=== PATIENT | female | born 1960 | race Caucasian/White ===

== ENCOUNTER 2017-01-31 07:00 | Inpatient (IN) | payer OTHER ==
--- NOTE | 2017-01-26 15:41 | PREOPHP ---
DATE OF ADMISSION: 01/31/2017 CONSULTATION REQUESTED BY: Dr. Bob Jones. The patient to have surgery with Dr. Bob santos n 01/31/2017. REASON FOR CONSULTATION: Consultation requested by Dr. Bob Jones for medical evaluation and danita arance of a 57-year-old woman about to undergo surgery on her cervical spine for C4-C5 and C5-C6 dis k disorders. Thank you, Dr. Jones for allowing us to participate in the care of this patient. HISTORY OF PRESENT ILLNESS: Eveline Nuñez a 57-year-old woman has issues with her neck, currently being admitted for correction of the above. In terms of her past surgical history, the patient has had a x1 and surgery for wisdom teeth, otherwise has had no significant surgeries or medic al hospitalizations. Did fracture the left clavicle when she was younger. MEDICATIONS: She currently takes the following medications: 1. Lisinopril 10 mg a day. 2. Celexa 10 mg a day. 3. Vitamin D. ALLERGIES: SHE IS NOT ALLERGIC TO ANY MEDICATIONS. SOCIAL HISTORY: The patient is , has 1 daughter, age 18 in good health. She does not smoke , drinks alcohol socially, does drink coffee. Usually has no difficulty sleeping at night and is em ployed. FAMILY HISTORY: Father at age 62 of COPD, was a smoker, also had heart issues. Mother at age 84 of heart, did have colon cancer, but did not from that. Four siblings are in good healt h. One has cirrhosis of the liver and 1 is diabetic. Family history of diabetes, heart, cancer and hypertension. No strokes or thyroid issues in her family. REVIEW OF SYSTEMS: HEENT: Does get periodic migraine headaches. CARDIORESPIRATORY: Denies any chest pain or shortness of breath. GASTROINTESTINAL: No melena or hematemesis. GENITOURINARY: No urgency, frequency. GYNECOLOGIC: Post-menopause for 3 years. Up to date with her psychiatric lpn. MUSCULOSKELETAL: Positive for neck, back and wrist pain. NEUROPSYCHIATRIC: Unremarkable. GENERAL HEALTH: As above. PHYSICAL EXAMINATION: VITAL SIGNS: The patient's blood pressure was 118/80, pulse was 60 and regular, respirations were 1 8, temperature 98.3. Height 67 inches, weight 149 pounds. GENERAL: The patient was noted to be a well-developed, well-nourished female, alert and cooperative , in no apparent acute distress, oriented to time, place, and person. HEAD, EARS, EYES, NOSE AND THROAT: Head was atraumatic. Eyes: Pupils were equal, reactive to ligh t and accommodation. Fundi were benign. Tympanic membranes were unremarkable. Nose was negative. Mouth was unremarkable. Fair oral hygiene was present. NECK: Supple without any rigidity. Trachea was midline. Thyroid was unremarkable. Neck veins wer e flat. Carotid pulses were equal. No bruits were heard. BACK: Unremarkable. CHEST: Symmetrical. BREASTS AND AXILLARY: Did not reveal any masses. LUNGS: Clear to percussion and auscultation. HEART: PMI is fifth intercostal space at the midclavicular line. Regular sinus rhythm was noted. No significant murmurs, rubs, or gallops being elicited. ABDOMEN: Soft, good bowel sounds were noted. No significant organomegaly, masses, or tenderness. Scar from prior surgery was noted. GENITALIA: Normal female external genitalia. PELVIC/RECTAL: Per psychiatric lpn. EXTREMITIES: Did not reveal any clubbing, edema or cyanosis. Peripheral pulses were physiologic. SKIN: Moist and warm without any eruptions. No gross lymphadenopathy was noted. NEUROLOGIC: Grossly intact. IMPRESSION: 1. Cervical disk disease C4-C5, C5-C6. 2. Hypertension. 3. Stable health. DISCUSSION: Review of laboratory and other data revealed the following: The patient's chemistries revealed a random glucose of 127, normal electrolytes, BUN and creatinine and liver function tests, CBC, sed rate, UA, PT and PTT were normal. The patient's EKG was borderline, but revealed some nons pecific changes, but was basically normal. Chest x-ray did reveal evidence of prior fractured left clavicle. No acute infiltrates and no acute cardiopulmonary changes being noted. DISCUSSION: Dr. Jones, I see no contraindication in this patient undergoing current proposed eboni marcelo under desired form of anesthesia and will be more than happy to follow her with you during her stay at [facility]. Thank you again, Dr. Jones, for allowing us to participate in care of this patient. Dictated By: LEO GATICA/CHEPE Conf#: [id number] DID#: [id number]
[2017-01-31] VITALS (28 sets, daily range): BP systolic 103–155; BP diastolic 47–79; PULSE 53–98; RESP 8–25; Ht 170.2 cm; Wt 66.0 kg
[~2017-01-31] VITALS: Ht 170.2 cm; Wt 66.0 kg
[~2017-01-31 07:00] MED LIST: LIDOCAINE 2% (SDV) 5 ML INJ ONE; PROPOFOL 200 MG INJ ONE
[2017-01-31] MEDS ORDERED: CITA10TA72 PO (10:16)
[2017-01-31] MEDS ORDERED: LISI10TA2 PO (10:17)
[2017-01-31] MEDS ORDERED: CEFAZOLIN 2 GM/50 ML (PMX) 50 ML IVPB ONE (10:30)
[2017-01-31] MEDS ORDERED: LACTATED RINGER'S 1,000 ML IV* ONE (10:30)
--- NOTE | 2017-01-31 10:53 | HPN ---
Date/Time of Note Date/Time of Note DATE: 01/31/17 TIME: 10:53 Interval H&P Admission Note Pt. seen H&P reviewed: No system changes ROMEO CASTLE MD Jan 31, 2017 10:53
[2017-01-31] MEDS ORDERED: MIDAZOLAM 1 MG/ML 2 ML INJ ONE (11:41)
[2017-01-31] MEDS ORDERED: GELATIN SIZE 100 SPONGE ONE ×2 (11:44→11:45)
[2017-01-31] MEDS ORDERED: POLYMYXIN/BACITRACIN 1L IRRIG ONE (11:44)
[2017-01-31] MEDS ORDERED: THROMBIN 5000 UNIT VIAL ONE (11:44)
[2017-01-31] MEDS ORDERED: BUPIVACAINE 0.25% (MPF) 10 ML 10 ML VIAL ONE (11:45)
[2017-01-31] MEDS ORDERED: HYDROmorphONE 2 MG/ML SYG ONE (11:57)
[2017-01-31] MEDS ORDERED: DEXAMETHASONE 4 MG/ML 1 ML INJ ONE (13:29)
[2017-01-31] MEDS ORDERED: ONDANSETRON 4 MG INJ ONE (13:30)
[2017-01-31] MEDS ORDERED: NEOSTIGMINE 3 MG/3 ML SYRINGE ONE (15:10)
[2017-01-31] MEDS ORDERED: ROCURONIUM 50 MG INJ ONE (15:10)
[2017-01-31] MEDS ORDERED: GLYCOPYRROLATE 0.4 MG INJ ONE (15:10)
[2017-01-31] MEDS ORDERED: ACETAMINOPHEN 1000MG/100ML IV 100 ML ONE (15:11)
[2017-01-31] MEDS ORDERED: KETOROLAC 30 MG INJ ONE (15:11)
[2017-01-31] MEDS ORDERED: HYDROmorphONE (0.2 MG/ML) 10ML SYG IV ONE (15:46)
[2017-01-31] MEDS ORDERED: FENTAnyl 50 MCG/ML VIAL ONE (15:58)
[2017-01-31] MEDS ORDERED: DIPHENHYDRAMINE 50 MG INJ IV PRN (16:00)
[2017-01-31] MEDS ORDERED: hydrALAzine 20 MG INJ IV PRN (16:00)
[2017-01-31] MEDS ORDERED: FENTAnyl 50 MCG/ML VIAL IV PRN ×3 (16:00)
[2017-01-31] MEDS ORDERED: EPHEDrine SULFATE 50 MG/5 ML SYG IV PRN (16:00)
[2017-01-31] MEDS ORDERED: LABETALOL HCL 20MG INJ IV PRN (16:00)
[2017-01-31] MEDS ORDERED: HYDROmorphONE (0.2 MG/ML) 10ML SYG IV PRN ×3 (16:00)
[2017-01-31] MEDS ORDERED: ONDANSETRON 4 MG INJ IV PRN ×2 (16:00→17:30)
[2017-01-31] MEDS ORDERED: MEPERIDINE 25 MG INJ IV PRN (16:00)
[2017-01-31] MEDS ORDERED: METOCLOPRAMIDE 10 MG INJ IV PRN (16:00)
[2017-01-31] MEDS ORDERED: NALOXONE (0.4 MG/ML) INJ ONE (16:08)
--- NOTE | 2017-01-31 16:15 | OPR ---
Date/Time of Note Date/Time of Note DATE: 01/31/17 TIME: 15:58 Operative Report Preoperative Diagnosis HNP C4-5 HNP C5-6 Postoperative Diagnosis Same Operation Performed Anterior cervical microdiscectomy at C4-5 Anterior cervical microdiscectomy at C5-6 Anterior cervical interbody arthrodesis at C4-5 Anterior cervical interbody arthrodesis at C5-6 Segmental spinal fixation from C4-C6 with Alphatec plate and screws Left iliac bone graft Cosmetic wound closures 5 cm left cervical 3 cm left iliac AP and lateral cervical radiograph (2 sets) Intraoperative nerve monitoring (4-1/2 hours) Surgeon: ROMEO CASTLE MD insurance account assistant: LEBRON SAM Anesthesia: general Anesthesiologist: CLEMENT RUSHING Estimated Blood Loss: 10 - 50 ml's Specimens HNP C4-5 and C5-6 Tubes/Drains 2 medium Hemovac drains in the cervical wound and 2 medium Hemovac drains in the left iliac wound Operative\Procedure Findings At surgery, severe herniation of the C5-6 disc and a moderate herniation of the C4-5 disc were confirmed the baseline intraoperative nerve monitoring revealed a decrease in the C5 potential on the left of 20% the C5 potential on the right of 40% the C6 potential on the left at 50% and the C6 potential on the right of 20% these returned to normal at the completion of the surgery ROMEO CASTLE MD Jan 31, 2017 16:11
[2017-01-31] MEDS ORDERED: NALOXONE (0.4 MG/ML) INJ IV ONE ×2 (16:30)
--- NOTE | 2017-01-31 16:38 | OPPN ---
Date/Time of Note Date/Time of Note DATE: 01/31/17 TIME: 16:24 Anesthesia Follow up Anesthesia Follow up Last documented vital signs Vital Signs Date Time Temp Pulse Resp B/P Pulse Ox O2 Delivery O2 Flow Rate FiO2 01/31/17 15:44 98.2 01/31/17 10:50 53 16 143/68 99 Room Air Comments Called back to PACU stat for patient O2 desaturation. Upon arrival, patient being bag ventilated by Dr. Puentes, secondary to acute hypoxia. Currently vitals signs stable with mask and bag ventilation with O2 saturation 100%, BP 126/72, and pulse 95. Narcan 0.2 mg ivp given, then narcan 0.1 mg additional given, with return of spontaneous ventilation and return of consciousness by the patient. Upon further inquiring PACU nurse, patient was given I mg of dilaudid in a short amount of time resulting in hypoventilation and hypoxia, requiring assisted ventilation. Patient received intraoperative dilaudid, as well as offirmev and toradol, and believe the additional dilaudid given in a short amount of time immediately upon arrival to the PACU resulted in hypoventilation. Currently patient awake and alert, vss, and complaining of slight discomfort to her neck and bladder. Will continue to follow and monitor her dilaudid use more closely in the PACU and subsequently on the floor with her [employer] LENS TECHNICIAN. CLEMENT RUSHING Jan 31, 2017 16:36
--- NOTE | 2017-01-31 17:24 | RADRPT ---
PROCEDURE: AP and lateral views of the cervical spine. CLINICAL INDICATION: Cervical fusion. TECHNIQUE: A total of 2 AP and 4 lateral views of the cervical spine were performed. COMPARISON: No. FINDINGS: The cervical vertebra are anatomically aligned. There is disk space narrowing with ventral and dors al spondylosis at C5-6. There is mild disk space narrowing and ventral spondylosis at C4-5. The ar ticular facets and spinous processes are unremarkable. The second image demonstrates a marker at the level of the C5-6 intervertebral disk space. Subsequen tly images demonstrate placement of a compression plate which is secured with screws in the bodies o f C4-C5 and C6 which are anatomically aligned in the final cross-table lateral view. IMPRESSION: 1. Status post anterior cervical fusion from C4 to 01/25. 2. An endotracheal tube and NG tube are noted in place. RPTAT:AAJJ Physician Kirti Date Time Electronically viewed and signed by Physician Kirti on 01/31/2017 17:23 KAPIL/
[2017-01-31] MEDS ORDERED: NACL 0.9% 3 ML SYG IV SCH (17:30)
[2017-01-31] MEDS ORDERED: HYDROmorphONE 0.2 MG/ML PCA IV SCH (17:30)
[2017-01-31] MEDS ORDERED: BETHANECHOL 25 MG TAB PO PRN (17:30)
[2017-01-31] MEDS ORDERED: NALOXONE (0.4 MG/ML) INJ IV PRN (17:30)
[2017-01-31] MEDS ORDERED: DIPHENHYDRAMINE 50 MG CAP PO PRN (17:30)
[2017-01-31] MEDS ORDERED: AL HYDROX/MG HYDROX/SIMETH 30 ML CUP PO PRN (17:30)
[2017-01-31] MEDS ORDERED: HYDROCODONE/APAP (5/325) TAB PO PRN ×2 (17:30)
[2017-01-31] MEDS ORDERED: PROCHLORPERAZINE 10 MG TAB PO PRN (17:30)
[2017-01-31] MEDS ORDERED: ACETAMINOPHEN 325 MG TAB PO PRN (17:30)
[2017-01-31] MEDS ORDERED: ZOLPIDEM 5 MG TAB PO PRN (17:30)
[2017-01-31] MEDS ORDERED: DIAZEPAM 5 MG/ML SYG IM PRN (17:30)
[2017-01-31] MEDS ORDERED: TRIMETHOBENZAMIDE 100 MG/ML VIAL IM PRN (17:30)
[2017-01-31] MEDS ORDERED: DIAZEPAM 5 MG TAB PO PRN (17:30)
[2017-01-31] MEDS: CEFAZOLIN 1 GM/50 ML (PMX) 50 ML IVPB SCH ×2 (18:00→23:58)
--- NOTE | 2017-01-31 19:48 | OPR ---
DATE OF OPERATION: 01/31/2017 PREOPERATIVE DIAGNOSES: 1. Herniated disk C4-C5 centrally (moderate). 2. Herniated disk C5-C6 centrally and to the right (severe). POSTOPERATIVE DIAGNOSES: 1. Herniated disk C4-C5 centrally (moderate). 2. Herniated disk C5-C6 centrally and to the right (severe). OPERATION PERFORMED: 1. Anterior cervical microdiskectomy at C4-5. 2. Anterior cervical microdiskectomy at C5-6. 3. Anterior cervical interbody arthrodesis at C4-5. 4. Anterior cervical interbody arthrodesis C5-6. 5. Segmental spinal fixation from C4 to C6 using Alphatec plate and screws. 6. Left iliac bone graft. 7. Cosmetic wound closures (5 cm left cervical, 3 cm left iliac). 8. AP and lateral cervical radiographs (2 sets). 9. Intraoperative nerve monitoring (4-1/2 hours) SURGEON: Bob Jones MD GENERAL LEDGER ACCOUNTANT: Skyla Lemus PA-C ANESTHESIA: General endotracheal by Dr. Munroe. ESTIMATED BLOOD LOSS: 50 mL, none replaced. DRAINS: Two medium Hemovac drains employed in the cervical wound, 2 medium Hemovac drains employed in the left iliac wound. COMPLICATIONS: None. PERTINENT HISTORY AND PHYSICAL: This is a 57-year-old female who sustained an injury to her neck in the course of employment on 01/15/2015. She has had extensive care since that time, remained sympt omatic with neck pain, stiffness, and upper extremity symptomatology, which has been unrelieved by c onservative management. She has undergone a number of diagnostic studies including an MRI of the ce rvical spine, which demonstrated disk herniations at C4-5 and C5-6. Treatment options were discusse d with the patient, she elected to proceed with surgery. OPERATIVE FINDINGS AT SURGERY: Herniations at C4-5 and C5-6 were confirmed with significant cord co mpression noted at C5-6. The baseline intraoperative nerve monitoring revealed a decrease in the C5 potential on the right of 40%, C5 potential on the left of 20%, C6 potential on the right of 20%, C 6 potential on the left of 50%. These all returned to normal at the completion of surgery. OPERATIVE PROCEDURE: With the patient in supine position after satisfactory induction of general en dotracheal anesthesia by Dr. Munroe, the patient was turned to the prone kneeling position onto the [facility] frame. The patient was positioned in the supine position with a 5-pound sandbag under the le ft buttock and a 3 liter bag of IV fluid under the shoulders. The anterior cervical spine and left iliac crest were prepped and draped in usual sterile fashion. Athrombic pumps were applied to the l egs below the knees to prevent venous stasis during and after procedure. An indwelling Banda cathet er was also placed preoperatively to facilitate bladder drainage during and after the procedure. A 5 cm incision was carried out approximately 3 fingerbreadths above the left clavicle in line with the left clavicle through skin and subcutaneous tissue to the platysma fascia. Superficial retracto rs were placed and hemostasis secured with electrocautery. Throughout the procedure, copious amount s of antibacterial irrigating solution were used to periodically irrigate the wound. The platysma f ascia was divided transversely and the interval between the sternocleidomastoid and strap muscles wa s entered with blunt dissection. The trachea and esophagus were mobilized to the right and protecte d with a Cloward hand-held retractor. The prevertebral soft tissues were cleared with a peanut elev ator. The 20-gauge spinal needle was carefully bent to prevent overpenetration, was then placed int o what was felt to be the C5-6 disk space. A lateral roentgenogram was taken, which confirmed anato tano localization. The longissimus coli muscles were elevated bilaterally with a hot knife and a Shelley otto self-retaining retractor placed into the wound. The operating microscope was then moved into p lace. A 15 blade knife used to cut a rectangular window in the annulus and anterior longitudinal li gament at C5-6, and multiple degenerative disk fragments were harvested with pituitary rongeurs and sent to laboratory for pathologic study. Additional fragments were harvested using Damari curettes (0, 2-0, 3-0, and 4-0straight and angulated curettes). The Cloward interbody distractors were then placed into the disk space to facilitate disk space distraction. A 2 mm Kerrison punch was used to take down the remnants of the posterior longitudinal ligament, and multiple disk fragments were valeriano ricki from posterior to the posterior longitudinal ligament in the canal up against the dural sac and the cord. A high speed Ant katya bur was then used to abrade the cartilaginous endplates down to subchondral bone. Retractors were withdrawn. Attention was then turned to the C4-C5 level wher e the identical procedure was carried out. The spinal cord and exiting C5 nerve roots at the C4-C5 level and the spinal cord and exiting C6 nerve roots were all decompressed during this procedure. W hile an x-ray was being developed, attention was turned to the left iliac crest where a 3 cm incisio n was carried out 1 inch proximal and 1 inch lateral to the anterior superior iliac spine in line wi th the iliac crest through skin and subcutaneous tissue to the fascia after skin was infiltrated wit h 0.25% Marcaine without epinephrine for postoperative analgesia. The skin was then retracted to th e level of the iliac crest and a fascial incision made directly over the iliac crest. A subperioste al dissection was then carried out in the inner and outer table of the left ilium, and a tricortical iliac bone graft was then harvested measuring 3/4 inch in length and 1 cm deep with a reciprocating saw and a 3/4 inch curved osteotome and mallet. It was trimmed to approximately 6 mm in height and 8 mm in depth for the 2 bone plugs. The iliac wound was thoroughly irrigated with antibacterial ir rigating solution and hemostasis secured with bone wax on the donor bone edges. This was closed ove r 2 medium Hemovac drains, one below the fascia and one above the fascia using #1 Vicryl sutures on the deep fascia, 2-0 Vicryl sutures in subcu tissue, and a 4-0 Vicryl subcuticular cosmetic closing suture on the skin. Attention then returned to the cervical wound where the 2 bone plugs were impacted into the C4-5 and C5-6 disk spaces under direct vision. A 32 mm Alphatec 6-hole plate was then selected and temporal ly transfixed to the anterior aspect of the cervical spine with temporary darts. AP and lateral x-r ays were taken, which confirmed appropriate positioning of the bone plugs and the hardware. Six 14 mm cortical cancellous screws were then used to secure the plate into C4, C5, and C6. Final AP and lateral x-rays were taken, which confirmed appropriate positioning of the hardware and the bone plug s. The wound was then closed in layers over 2 medium Hemovac drains, one below the fascia and one a kiara the fascia using 0 Vicryl Stratafix sutures to reapproximate the interval between the sternocle idomastoid and strap muscles, 0 Vicryl sutures on the platysma fascia, 3-0 Vicryl sutures in subcu t issue, and a 4-0 Vicryl subcuticular cosmetic closing suture on the skin. Dermabond and sterile sarai ssings were applied to both incisions. The neck was then immobilized in an [place] collar prior to ex tubation by Dr. Munroe. She was transported to recovery room in satisfactory condition. At the concl usion of the procedure, sponge, instrument, and needle counts were all correct. NEED FOR [employer] ELECTRICAL DESIGNER: During this spinal surgical procedure, my outpatient physical therapist assistant was used to retrac t and protect the spinal nerves and dural sac. My outpatient physical therapist assistant also employed the suction catheters to evacuate blood from the surgical field to improve visualization of the neural structures. The zari tant was medically necessary to facilitate the completion of the surgery in a safe and expeditious m calista. State of [place] regulations, as well as hospital bylaws, preclude the use of non-license d health care personnel such as operating room technicians, to perform these functions. Throughout the procedure, neural monitoring was carried out by [employer] including EMG, SSEP, and MEP monitoring of the C4, C5, C6, and C7 nerve roots and spinal cord potent ials bilaterally. These were interpreted by neurologist employed by [employer]. An endotrach eal tube with laryngeal monitoring was also used. Dictated By: BOB JONES MD TM/NTS Conf#: [id number] DID#: [id number] CC: LEO ROSS MD; BOB JONES MD;*End*
--- NOTE | 2017-01-31 19:53 | CONS ---
DATE OF ADMISSION: 01/31/2017 DATE OF CONSULTATION: 01/31/2017 POSTOPERATIVE CONSULT FOLLOWUP: HISTORY OF PRESENT ILLNESS: Patient seen in recovery room postop approximately 4:50 p.m. The patien t is alert and apparently had a hypoventilation episode secondary to intravenous narcotic injection for pain control; however, is quite fine at this particular point in time. The patient's vital sign s reveal a blood pressure of 130/82, respirations are 17 patient is afebrile. O2 sat is satisfactor y. HEENT: other than a cervical collar in place and is otherwise unremarkable. LUNGS: Clear. HEART: Reveals a regular rate exam and again cervical collar noted. IMPRESSION: 1. Status post cervical disk surgery for herniated disk. 2. Hypertension. 3. Anxiety/depression. DISCUSSION: Plan is to obviously monitor this patient carefully in terms of her general status. He r preoperative medicines have been ordered and I will follow her along with you during her stay at [facility]. Thank you again, Dr. Jones, for allowing us to participate in the care of this patient. Dictated By: LEO ROSS MD SS/CHEPE Conf#: [id number] DID#: [id number]
[2017-01-31] MEDS: DEXTROSE 5%-0.45% NACL 1,000 ML IV SCH (21:35)
[2017-01-31] MEDS: RANITIDINE 150 MG TAB PO SCH (21:36)
[2017-01-31] MEDS: CEPASTAT LOZENGE MT PRN (21:36)
[2017-02-01 00:02] VITALS: BP 98/56; PULSE 58; RESP 17
[2017-02-01] MEDS: DEXTROSE 5%-0.45% NACL 1,000 ML IV SCH ×3 (03:02→23:02)
[2017-02-01 04:14] VITALS: BP 107/58; RESP 20
[2017-02-01] MEDS: CEFAZOLIN 1 GM/50 ML (PMX) 50 ML IVPB SCH ×2 (05:19→12:11)
[2017-02-01 05:23] LABS: HEMATOCRIT 34.7 % (37.0-47.0); HEMOGLOBIN 11.7 g/dl (12.0-16.0)
[2017-02-01] MEDS: CEPASTAT LOZENGE MT PRN (05:26)
[2017-02-01 05:54] LABS: CALCIUM 8.6 mg/dl (8.4-10.2); CREATININE 0.9 mg/dl (0.44-1.00); POTASSIUM 4.3 mmol/L (3.5-5.1)
--- NOTE | 2017-02-01 07:07 | PN ---
Date/Time of Note Date/Time of Note DATE: 02/01/17 TIME: 07:05 Assessment/Plan Lines/Catheters IV Catheter Type (from Nrs): Peripheral IV Banda in Place (from Nrs): Yes Subjective 24 Hr Interval Summary The patient is postop day #1 following a 2 level anterior cervical microdiscectomy and interbody arthrodesis at C4-5 and C5-6. She is resting comfortably in bed. Her [place] collar is in place. Neurovascular structures are intact distally. She has a Banda catheter in place. Her morning lab work is unremarkable. Her drains will be removed, and she will be mobilized by physical therapy as tolerated. She may be discharged later today if cleared by physical therapy. Discharge instructions and follow-up arrangements have been made. Exam/Review of Systems Vital Signs Vitals Vital Signs Date Time Temp Pulse Resp B/P Pulse Ox O2 Delivery O2 Flow Rate FiO2 02/01/17 05:24 17 02/01/17 04:14 97.9 62 107/58 99 02/01/17 01:30 Nasal Cannula 2.0 Intake and Output 01/31/17 01/31/17 02/01/17 15:00 23:00 07:00 Intake Total 1600 ml 1380 ml Output Total 10 ml 180 ml 1235 ml Balance 1590 ml -180 ml 145 ml Results Result Diagram: 02/01/17 0445 02/01/17 0445 ROMEO CASTLE MD Feb 01, 2017 07:07
[2017-02-01] MEDS ORDERED: BETHANECHOL 25 MG TAB PO SCH (08:00)
[2017-02-01 08:27] VITALS: BP 91/53; RESP 16
[2017-02-01] MEDS: LISINOPRIL 10 MG TAB PO SCH (08:56)
[2017-02-01] MEDS: FERROUS SULFATE (EC) 325 MG TAB PO SCH ×3 (08:58→21:00)
[2017-02-01] MEDS: CITALOPRAM 20 MG TAB PO SCH (08:58)
[2017-02-01] MEDS: ASCORBIC ACID 500 MG TAB PO SCH ×2 (08:58→21:00)
[2017-02-01] MEDS: RANITIDINE 150 MG TAB PO SCH ×2 (08:58→21:00)
[2017-02-01] MEDS: DOCUSATE SODIUM 100 MG CAP PO SCH ×2 (08:58→21:00)
--- NOTE | 2017-02-01 09:51 | CONS ---
DATE OF ADMISSION: 01/31/2017 DATE OF CONSULTATION: 02/01/2017 TYPE OF CONSULTATION: Postop consult followup. TIME SEEN: Approximately 7:45 a.m. HISTORY OF PRESENT ILLNESS: Patient is alert, states that she had a good night, Dr. Jones had be en in already and may be going home today if cleared by physical therapy. No particular complaints; however, has not gotten up as yet. PHYSICAL EXAMINATION: VITAL SIGNS: Revealed the following, the patient's blood pressure was 107/58, pulse was 62 and regu lar, respirations were 20, temperature 97.9, O2 saturation 99% on room air. HEENT: Unremarkable. LUNGS: Clear. HEART: Reveals a regular rhythm. The rest of the exam other than a cervical collar being in place basically unremarkable. IMPRESSION: 1. Status post cervical spine surgery. 2. Hypertension history. 3. Stable health. DISCUSSION: Review of laboratory and other data reveal the hemoglobin to be 11.7, hematocrit 34.7. Chemistries revealed normal electrolytes, BUN and creatinine, random glucose was elevated at 184; h owever, the patient was not fasting. PLAN: As per Dr. Jones, the patient is stable. Obviously she will be going home today. Condition today is improving and stable. Thank you again, Dr. Jones, for allowing us to participate in the care of this patient. Dictated By: LEO ROSS MD SS/CHEPE Conf#: [id number] DID#: [id number]
[2017-02-01 10:18] LABS: ADD UMIC YES; URINE BILIRUBIN (Dip) NEGATIVE (NEGATIVE); URINE BLOOD (Dip) TRACE (NEGATIVE); URINE COLOR LT. YELLOW (YELLOW); URINE GLUCOSE (Dip) NEGATIVE (NEGATIVE); URINE KETONES (Dip) NEGATIVE (NEGATIVE); URINE LEUKOCYTE ESTERASE (Dip) NEGATIVE (NEGATIVE); URINE NITRITE (Dip) NEGATIVE (NEGATIVE); URINE TOTAL PROTEIN (Dip) NEGATIVE (NEGATIVE); URINE UROBILINOGEN (Dip) 0.2 E.U./dL (0.1-1.0)
[2017-02-01 10:28] LABS: URINE RBCS 0-2 /HPF (0)
[2017-02-01] MEDS ORDERED: BETHANECHOL 25 MG TAB PO PRN (12:00)
--- NOTE | 2017-02-01 12:46 | OPPN ---
Date/Time of Note Date/Time of Note DATE: 02/01/17 TIME: 12:44 Anesthesia Follow up Anesthesia Follow up Last documented vital signs Vital Signs Date Time Temp Pulse Resp B/P Pulse Ox O2 Delivery O2 Flow Rate FiO2 02/01/17 09:00 16 02/01/17 08:27 98.1 58 91/53 96 02/01/17 01:30 Nasal Cannula 2.0 Respiratory function: WNL Cardiovascular function: WNL Comments patient without complaints. VSS. No further respiratory depression from dilaudid. Satisfactory recovery from anesthesia. CLEMENT RUSHING Feb 01, 2017 12:46
[2017-02-01] MEDS ORDERED: OXYCODONE/ACETAMINOPHEN (5/325) TAB PO PRN (14:00)
[2017-02-01] MEDS: OXYCODONE/ACETAMINOPHEN (5/325) TAB PO PRN ×2 (15:04→20:00)
[2017-02-01 19:21] VITALS: BP 141/63; RESP 18
[2017-02-02] MEDS: OXYCODONE/ACETAMINOPHEN (5/325) TAB PO PRN ×2 (02:06→08:47)
--- NOTE | 2017-02-02 06:52 | PN ---
Date/Time of Note Date/Time of Note DATE: 02/02/17 TIME: 06:51 Assessment/Plan Lines/Catheters IV Catheter Type (from Nrs): Saline Lock Banda in Place (from Nrsg): No Subjective 24 Hr Interval Summary Patient is postop day #2 following anterior cervical discectomy and fusion at C4 -5 and C5-6. She is resting comfortably in bed. She is afebrile. Neurovascular structures are intact distally. I anticipate she will be discharged from the hospital upon clearance from physical therapy later today. Strict discharge precautions and instructions have been given. Follow-up arrangements have been made. Exam/Review of Systems Vital Signs Vitals Vital Signs Date Time Temp Pulse Resp B/P Pulse Ox O2 Delivery O2 Flow Rate FiO2 02/01/17 20:20 Nasal Cannula 2.0 02/01/17 19:21 98.4 61 18 141/63 97 Intake and Output 02/01/17 02/01/17 02/02/17 15:00 23:00 07:00 Intake Total 250 ml 900 ml 550 ml Balance 250 ml 900 ml 550 ml Results Result Diagram: 02/01/17 0445 02/01/17 0445 ROMEO CASTLE MD Feb 02, 2017 06:52
[2017-02-02] MEDS: DEXTROSE 5%-0.45% NACL 1,000 ML IV SCH (07:42)
[2017-02-02 08:17] VITALS: BP 129/60; RESP 18
[2017-02-02] MEDS: CITALOPRAM 20 MG TAB PO SCH (08:38)
[2017-02-02] MEDS: LISINOPRIL 10 MG TAB PO SCH (08:38)
[2017-02-02] MEDS: RANITIDINE 150 MG TAB PO SCH (08:38)
[2017-02-02] MEDS: ASCORBIC ACID 500 MG TAB PO SCH (08:38)
[2017-02-02] MEDS: DOCUSATE SODIUM 100 MG CAP PO SCH (08:38)
[2017-02-02] MEDS: FERROUS SULFATE (EC) 325 MG TAB PO SCH ×2 (08:38→13:00)
--- NOTE | 2017-02-02 10:31 | PN ---
DATE: 02/02/2017 POSTOP CONSULT PROGRESS NOTE SUBJECTIVE: The patient seen approximately 7:40 a.m. 02/02/2017. The patient groggy and sleepy, had received Valium, not too long before this visit, is however, arousable and answers questions. PHYSICAL EXAMINATION VITAL SIGNS: The last have available reveals blood pressure 141/53, pulse of 61, respirations 18, t emperature 98.4, O2 sat was 97%. HEENT: Unremarkable. LUNGS: Clear. HEART: Reveals a regular rhythm. ABDOMINAL: The rest of the exam was basically unremarkable. IMPRESSION: 1. Status post cervical spine surgery. 2. Complaining of back pain and muscle spasm. 3. Hypertension by history. DISCUSSION: Laboratory not available for today, ____ was ordered. The patient had ambulated yester day, will attempt to ambulate a little bit more and according to her sister who is with her the plan s are to discharge her today, assuming she is able to ambulate at this particular point in time. Thank you again, Dr. Jones, for allowing us to participate in the care of this patient. Dictated By: LEO ROSS MD SS/NTS Conf#: [id number] DID#: [id number]
== END 2017-02-02 13:30 | disposition home or self-care (01) | DRG 473 ==
LOC: REC 09:54 → MS1 18:40
PROVIDERS: ADMIT Orthopaedic Surgery; ATTEND Orthopaedic Surgery
PROC: 0QB30ZZ Excision of Left Pelvic Bone, Open Approach (ICD-10-PCS; 2017-01-31)
PROC: 0RB30ZZ Excision of Cervical Vertebral Disc, Open Approach (ICD-10-PCS; 2017-01-31)
PROC: 4A11X4G Monitoring of Peripheral Nervous Electrical Activity, Intraoperative, External Approach (ICD-10-PCS; 2017-01-31)
PROC: 0RG2070 Fusion of 2 or more Cervical Vertebral Joints with Autologous Tissue Substitute, Anterior Approach, Anterior Column, Open Approach (ICD-10-PCS; principal; 2017-01-31 12:30)
DX: M50.022 Cervical disc disorder at C5-C6 level with myelopathy (principal); I10 Essential (primary) hypertension; M50.221 Other cervical disc displacement at C4-C5 level; R09.02 Hypoxemia; T40.2X5A Adverse effect of other opioids, initial encounter; Y92.238 Other place in hospital as the place of occurrence of the external cause; F41.9 Anxiety disorder, unspecified; F32.9 Major depressive disorder, single episode, unspecified
CPT/HCPCS: 72050; 80048; 81001; 85014; 85018; 86850; 86900; 86901; 86920; 87086; 97116; 97162; 97530; J0131; J0690; J1100; J1170; J1885; J2175; J2250; J2310; J2405; J2710; J3010; J3360; J7042; J7120